=== PATIENT | female | born 1950 | race Caucasian/White ===

== ENCOUNTER 2020-07-15 07:33 | Day surgery (SDC) | payer OTHER, BC ==
[2020-07-08 12:43] VITALS: BMI 20.9
[2020-07-15] MEDS ORDERED: PROPOFOL 20 ML ONE ×3 (07:51)
[2020-07-15] MEDS ORDERED: LIDOCAINE HCL/PF 2% SDV 5ML VIAL ONE (07:51)
[2020-07-15 08:50] VITALS: TEMP 98
[2020-07-15 09:22] VITALS: BP 132/70; PULSE 84
== END 2020-07-15 09:22 | disposition home or self-care (01) ==
LOC: FASU-ENDO 07:33
PROVIDERS: ATTEND Internal Medicine Gastroenterology
PROC: 0DJD8ZZ Inspection of Lower Intestinal Tract, Via Natural or Artificial Opening Endoscopic (ICD-10-PCS; principal; 2020-07-15 08:23)
DX: Z12.11 Encounter for screening for malignant neoplasm of colon (principal); K64.8 Other hemorrhoids

== ENCOUNTER 2024-12-18 13:32 | Emergency (ER) | payer OTHER, BC ==
[2024-12-18] MEDS ORDERED: ACETAMINOPHEN 325 MG TABLET (FP) ONE (13:59)
[2024-12-18] MEDS ORDERED: DIPHTH,PERTUSS(ACELL),TET 0.5 ML DISP.SYRIN IM ONE (14:15)
[2024-12-18] MEDS: DIPHTH,PERTUSS(ACELL),TET 0.5 ML DISP.SYRIN IM ONE (14:22)
[2024-12-18] MEDS: ACETAMINOPHEN 325 MG TABLET (FP) PO ONE (14:22)
[2024-12-18 14:56] VITALS: BP 135/82; PULSE 92; RESP 18; TEMP 98.4; BMI 20.9
== END 2024-12-18 15:05 | disposition home or self-care (01) ==
LOC: FER 13:32
PROC: 3E0234Z Introduction of Serum, Toxoid and Vaccine into Muscle, Percutaneous Approach (ICD-10-PCS; principal; 2024-12-18)
DX: S42.212A Unspecified displaced fracture of surgical neck of left humerus, initial encounter for closed fracture (principal); S50.812A Abrasion of left forearm, initial encounter; I10 Essential (primary) hypertension; Z23 Encounter for immunization; W01.198A Fall on same level from slipping, tripping and stumbling with subsequent striking against other object, initial encounter; Y92.480 Sidewalk as the place of occurrence of the external cause
CPT/HCPCS: 73030-TC-LT-FY; 73060-TC-LT-FY; 73070-TC-LT-FY; 73090-TC-LT-FY; 73110-TC-LT-FY; 73130-TC-LT-FY; 90471; 90715; 99284-25